=== PATIENT | male | born 1980 | race Caucasian/White ===

== ENCOUNTER 2019-03-28 11:02 | Emergency (ER) | payer OTHER ==
[~2019-03-28] VITALS: Ht 190.5 cm; Wt 122.5 kg
[2019-03-28 11:10] VITALS: BP 141/75
--- NOTE | 2019-03-28 11:46 | NUR ---
38 Y/O M C/O SOB X 2 DAYS. PT STATES HE HAS A HX OF ASTHMA, USES AN INHALER, DOES NOT HAVE ONE AT THIS TIME. PT LUNG SOUNDS CLEAR, OXYGEN LEVEL 98% R/A. PT PUT IN GOWN, ON MONITOR. RESTING COMFORTABLY, SIDE RAIL X1 IN PLACE NKA
[2019-03-28] MEDS ORDERED: DEXAMETHASONE 10 MG/ML VIAL IM ONE (13:15)
[2019-03-28] MEDS ORDERED: ALBUTEROL SULFATE/IPRATROPIU 3 ML SOL IH ONE (13:15)
--- NOTE | 2019-03-28 13:15 | NUR ---
CARMEN ANDERS AT BEDSIDE EXAMINING PATIENT.
--- NOTE | 2019-03-28 13:24 | NUR ---
RT AT BEDSIDE PERFORMING ORDERED BREATHING TX.
[2019-03-28 13:36] VITALS: BP 141/75
--- NOTE | 2019-03-28 13:37 | NUR ---
Patient discharged with v/s stable. Written and verbal after care instructions given and explained. Patient alert, oriented and verbalized understanding of instructions. Ambulatory with steady gait. All questions addressed prior to discharge. ID band removed. Patient advised to follow up with PMD. Rx of ALBUTERAL, QVAR, MEDROL given. Patient educated on indication of medication including possible reaction and side effects. Opportunity to ask questions provided and answered.
== END 2019-03-28 13:37 | disposition home or self-care (01) ==
LOC: MED 11:02
DX: J45.901 Unspecified asthma with (acute) exacerbation (principal); Z76.0 Encounter for issue of repeat prescription
CPT/HCPCS: 94640; 96372; 99283; J1100; J7620

== ENCOUNTER 2019-03-29 10:34 | Emergency (ER) | payer OTHER ==
[~2019-03-29] VITALS: Ht 190.5 cm; Wt 122.5 kg
[2019-03-29 10:41] VITALS: BP 133/89
--- NOTE | 2019-03-29 11:20 | NUR ---
Patient ambulated to bed 1. RN evaluating patient at bedside.
--- NOTE | 2019-03-29 11:46 | NUR ---
38YO M C/O CONTINUOUS HICCUPS X 3 HOURS WHICH IS NOT ALLEVIATED BY DRINKING OF WATER. PT DECRIBES DISCOMFORT "HAVING ACID UP MY CHEST." DENIES VOMITING, ABDOMINAL PAIN AND . LUNGS CLEAR BL; HR EVEN AND REGULAR; PATIENT STATES PAIN OF 0/10 AT THIS TIME; PT WITH NO ACTIVE HICCUPS AT THIS TIME. VSS; PATIENT POSITIONED FOR COMFORT; HOB ELEVATED; BEDRAILS UP X2; BED DOWN. ER MD MADE AWARE OF PT STATUS. PMH: ASTHMA NKA
[2019-03-29] MEDS ORDERED: PANTOPRAZOLE 40 MG TABEC PO ONE (13:45)
[2019-03-29 14:11] VITALS: BP 133/89
--- NOTE | 2019-03-29 14:12 | NUR ---
Patient discharged with v/s stable. Written and verbal after care instructions given and explained. Patient alert, oriented and verbalized understanding of instructions. Ambulatory with steady gait. All questions addressed prior to discharge. ID band removed. Patient advised to follow up with PMD. Rx of OMEPRAZOLE given. Patient educated on indication of medication including possible reaction and side effects. Opportunity to ask questions provided and answered.
== END 2019-03-29 14:10 | disposition home or self-care (01) ==
LOC: MED 10:34
DX: R06.6 Hiccough (principal); K21.9 Gastro-esophageal reflux disease without esophagitis; J45.909 Unspecified asthma, uncomplicated
CPT/HCPCS: 99283

== ENCOUNTER 2019-04-12 12:15 | Emergency (ER) | payer OTHER ==
--- NOTE | 2019-04-12 13:05 | NUR ---
LEFT WITHOUT BEING TRIAGED.
== END 2019-04-12 13:05 | disposition left against medical advice (07) ==
LOC: MED 12:15
DX: R06.02 Shortness of breath (principal); Z53.21 Procedure and treatment not carried out due to patient leaving prior to being seen by health care provider

== ENCOUNTER 2019-04-12 15:52 | Emergency (ER) | payer OTHER ==
[~2019-04-12] VITALS: Ht 190.5 cm; Wt 122.5 kg
[2019-04-12 16:47] VITALS: BP 139/67
--- NOTE | 2019-04-12 17:05 | NUR ---
38 Y/O MALE C/O SOB STARTING 3 DAYS AGO, UNPROVOKED. PT HAS PMH: ASTHMA. RESP EVEN AND UNLABORED. WHEEZES HEARD IN BILAT LOBES DURING INSPIRATION/EXHALATION. DENIES ANY CHEST PAIN. DENIES ANY RECENT ILLNESS. AAOX4. CAP REFILL <3. BOWEL SOUNDS NORMOACTIVE IN ALL QUADRANTS. VSS. NKA
[2019-04-12] MEDS ORDERED: predniSONE 20 MG TAB PO ONE (18:25)
[2019-04-12] MEDS ORDERED: ALBUTEROL SULFATE/IPRATROPIU 3 ML SOL IH ONE (18:25)
--- NOTE | 2019-04-12 18:57 | NUR ---
RESP EVEN AND UNLABORED. PT REPORTS DECREASED SOB.
[2019-04-12 19:26] VITALS: BP 123/69
--- NOTE | 2019-04-12 19:26 | NUR ---
Patient discharged with v/s stable. Written and verbal after care instructions given and explained. Patient alert, oriented and verbalized understanding of instructions. Ambulatory with steady gait. All questions addressed prior to discharge. ID band removed. Patient advised to follow up with PMD. Rx of ALBUTEROL, PREDNISONE, QVAR given. Patient educated on indication of medication including possible reaction and side effects. Opportunity to ask questions provided and answered.
== END 2019-04-12 19:26 | disposition home or self-care (01) ==
LOC: MED 15:52
DX: J20.9 Acute bronchitis, unspecified (principal); J45.909 Unspecified asthma, uncomplicated
CPT/HCPCS: 71045; 94640; 99283; J7512; J7620; Q0092

== ENCOUNTER 2020-06-29 11:12 | Emergency (ER) | payer OTHER ==
[~2020-06-29] VITALS: Ht 190.5 cm; Wt 104.3 kg
[2020-06-29 11:12] VITALS: BP 134/74
--- NOTE | 2020-06-29 11:15 | NUR ---
BIBA TO BED 9
--- NOTE | 2020-06-29 11:16 | NUR ---
39 Y/O MALE BIBA C/O AMS. PT WAS FOUND BY PD ON A WALL, WHEN PD CAME INTO CONTACT WITH HIM PT BEGAN PACING AND RAMBLING TO HIMSELF, NOT MAKING SENSE. PER EMS PT IS AOX3, CONFUSED TO THE DATE. ON ARRIVAL, [facility] 14, A/O X3, CONFUSED TO SITUATION. PT STATES HE IS HERE TO "CLEAR THE AIR" AND THAT "THE BIRDS CALLED 911". PT DENIES DRUG USE BUT ADMITS TO SMOKING CIGARETTES AND WEED IN THE PAST. PT DENIES BEING HOMELESS AND STATES HE LIVES WITH HIS BROTHER. PT STATES HE FELL AND IS C/O BILATERAL KNEE PAIN 12/03 THAT IS NONRADIATING. PT DENIES N/V/SOB/CP/FEVER. PT LAYING IN BED WITH EVEN AND UNLABORED RESPIRATIONS. BED IN LOWEST POSITION, BRAKES LOCKED, X2 SIDERAILS UP FOR SAFETY. PT ON SUPERVISOR PUBLICATIONS HX ASTHMA AND SLEEP APNEA NKA
--- NOTE | 2020-06-29 12:00 | NUR ---
DR ZAPATA AT BEDSIDE EVALUATING PT
--- NOTE | 2020-06-29 12:21 | NUR ---
recycling technician at pt bedside.
[2020-06-29 12:36] LABS: BASOPHILS # (AUTO) 0.1 K/uL (0.00-0.22); BASOPHILS % (AUTO) 1.1 % (0.0-2.0); EOSINOPHILS # (AUTO) 0.2 K/uL (0-0.4); HEMATOCRIT 34.6 % (36-52); HEMOGLOBIN 11.5 g/dL (12.0-18.0); LYMPHOCYTES # (AUTO) 1.9 K/uL (2.0-11.5); LYMPHOCYTES % (AUTO) 41.6 % (20.5-51.1); MEAN CORPUSCULAR HEMOGLOBIN 32 pg (27-31); MEAN CORPUSCULAR HGB CONC 33 g/dL (33-37); MONOCYTES # (AUTO) 0.6 K/uL (0.8-1.0); MONOCYTES % (AUTO) 13.9 % (1.7-9.3); NEUTROPHILS # (AUTO) 1.7 K/uL (1.8-7.7); NEUTROPHILS % (AUTO) 38.4 % (42.2-75.2); PLATELET COUNT (AUTO) 199 K/uL (140-450); RED BLOOD CELL COUNT(AUTO) 3.64 MIL/uL (4.20-6.10); RED CELL DISTRIBUTION WIDTH 12.8 % (11.6-13.7); WHITE BLOOD COUNT (AUTO) 4.5 K/uL (4.8-10.8)
--- NOTE | 2020-06-29 12:40 | NUR ---
hydroelectric production technician at pt bedside.
--- NOTE | 2020-06-29 13:01 | NUR ---
RT at bedside for ABG exam.
[2020-06-29 13:13] LABS: ALBUMIN 3.3 g/dL (3.4-5.0); ANION GAP 9.1 (8-16); CARBON DIOXIDE 27.7 mmol/L (21-32); CREATININE 0.9 mg/dL (0.6-1.3); POTASSIUM 3.8 mmol/L (3.5-5.1); TOTAL BILIRUBIN 0.3 mg/dL (0.0-1.0)
[2020-06-29 13:14] LABS: ACETAMINOPHEN < 0.5 ug/ml (10-30); SALICYLATE < 2.8 mg/dL (2.8-20.0)
--- NOTE | 2020-06-29 13:15 | NUR ---
PT REFUSED ABG. PT SCEAMING AT STAFF SAYING "I'M GOING TO DO SOMETHING TO THIS PLACE!" PT YELLING THAT HE WANTS CHICKEN AND THAT HIS IS HUNGRY. PT STATES HE WANTS TO LEAVE AND GET SOMETHING TO EAT. PT OFFERED A MEAL HERE PT REFUSED AND VERBALLY AGGRESSIVE YELLING AT MYSELF. SECURITY CALLED TO BEDSIDE. PT WILL BE ESCORTED FROM FACILITY. DR. ZAPATA MADE AWARE.
[2020-06-29 13:17] LABS: APPEARANCE,URINE CLEAR (CLEAR); BILIRUBIN,URINE NEGATIVE (NEGATIVE); BLOOD, URINE NEGATIVE (NEGATIVE); COLOR,URINE YELLOW (YELLOW); LEUKOCYTE ESTERASE ,URINE NEGATIVE (NEGATIVE); NITRITE, URINE NEGATIVE (NEGATIVE); UGLUCOSE NEGATIVE (NEGATIVE)
--- NOTE | 2020-06-29 13:20 | NUR ---
PT ELOPED FROM FACILITY ACCOMPANIED BY SECURITY. DR. ZAPATA NOTIFIED.
[2020-06-29 13:35] LABS: BARBITURATE, URINE NEGATIVE ng/ml (NEG <=200); BENZODIAZEPINE, URINE NEGATIVE ng/mL (NEG <=200); CANNABINOID, URINE NEGATIVE ng/mL (NEG <=50); COCAINE, URINE NEGATIVE ng/mL (NEG <=300); OPIATE, URINE NEGATIVE ng/mL (NEG <=2000); PHENCYCLIDINE SCREEN,URINE NEGATIVE ng/mL (NEG <=25)
== END 2020-06-29 13:20 | disposition left against medical advice (07) ==
LOC: MED 11:12
DX: F29 Unspecified psychosis not due to a substance or known physiological condition (principal); D64.9 Anemia, unspecified; J45.909 Unspecified asthma, uncomplicated; D72.819 Decreased white blood cell count, unspecified
CPT/HCPCS: 36415; 71045; 80053; 80305; 81003; 83880; 84484; 85025; 93005; 99285; G0480; G0482

== ENCOUNTER 2022-03-24 23:39 | Emergency (ER) | payer OTHER ==
[~2022-03-24] VITALS: Ht 190.5 cm; Wt 136.1 kg
[2022-03-24 23:46] VITALS: BP 147/90
--- NOTE | 2022-03-24 23:49 | NUR ---
SEEN AND EXAMINED BY ZITA
--- NOTE | 2022-03-24 23:59 | NUR ---
pt ambulated to bed #4
[2022-03-25] MEDS ORDERED: predniSONE 20 MG TAB PO ONE
[2022-03-25] MEDS ORDERED: ALBUTEROL SULFATE/IPRATROPIU 3 ML SOL IH ONE
[2022-03-25] MEDS ORDERED: ALBU0.0912 INH (00:59)
[2022-03-25] MEDS ORDERED: PRED20TA5 PO (00:59)
[2022-03-25] MEDS ORDERED: AZIT250T11 PO (00:59)
[2022-03-25] MEDS ORDERED: predniSONE 20 MG TAB ONE (01:03)
[2022-03-25 01:16] VITALS: BP 147/90
--- NOTE | 2022-03-25 01:17 | NUR ---
Patient discharged with v/s stable. Written and verbal after care instructions given and explained. Patient alert, oriented and verbalized understanding of instructions. Ambulatory with steady gait. All questions addressed prior to discharge. ID band removed. Patient advised to follow up with PMD. Rx of ALBUTEROL, AZITHROMYCIN, PREDNISONE given. Patient educated on indication of medication including possible reaction and side effects. Opportunity to ask questions provided and answered.
== END 2022-03-25 01:16 | disposition home or self-care (01) ==
LOC: MED 23:39
DX: J45.901 Unspecified asthma with (acute) exacerbation (principal); Z79.899 Other long term (current) drug therapy
CPT/HCPCS: 94640; 99283; J7512

== ENCOUNTER 2022-04-05 04:54 | Emergency (ER) | payer OTHER ==
[~2022-04-05] VITALS: Ht 190.5 cm; Wt 133.8 kg
[~2022-04-05 04:54] MED LIST: ALBU0.0912 INH; AZIT250T11 PO; PRED20TA5 PO
[2022-04-05 04:57] VITALS: BP 148/101
--- NOTE | 2022-04-05 05:00 | NUR ---
to bed ambulatory
--- NOTE | 2022-04-05 05:00 | NUR ---
RECEIVED IN BED 5 WITH C/O SOB X 3 DAYS. PT WITH H/O ASTHMA. RESPIRATIONS SLIGHTLY LABORED.
--- NOTE | 2022-04-05 05:23 | NUR ---
Dr. Craig examining patient.
[2022-04-05] MEDS ORDERED: DEXAMETHASONE 10 MG/ML VIAL IM ONE (05:25)
[2022-04-05] MEDS ORDERED: IPRATROPIUM 0.02% 0.5 MG/2.5 ML NEBU INH ONE (05:25)
[2022-04-05] MEDS ORDERED: ALBUTEROL 0.083% 2.5 MG/3 ML NEBU INH ONE (05:25)
--- NOTE | 2022-04-05 05:35 | NUR ---
Respiratory Therapist at bedside for respiratory intervention.
--- NOTE | 2022-04-05 06:57 | NUR ---
Dr. ANDREW examining patient.
[2022-04-05 07:09] VITALS: BP 145/83
--- NOTE | 2022-04-05 07:09 | NUR ---
Patient discharged with v/s stable. Written and verbal after care instructions given and explained. Patient verbalized understanding. Ambulatory with steady gait. All questions addressed prior to discharge. Advised to follow up with PMD.
== END 2022-04-05 07:09 | disposition home or self-care (01) ==
LOC: MED 04:54
DX: J45.901 Unspecified asthma with (acute) exacerbation (principal); I10 Essential (primary) hypertension; Z79.899 Other long term (current) drug therapy
CPT/HCPCS: 94640; 96372; 99283; J1100; J7613; J7644

== ENCOUNTER 2022-04-08 04:57 | Emergency (ER) | payer OTHER ==
[~2022-04-08] VITALS: Ht 190.5 cm; Wt 131.5 kg
[2022-04-08 05:20] VITALS: BP 129/92
--- NOTE | 2022-04-08 05:23 | NUR ---
TO BED AMBULATORY
[2022-04-08] MEDS ORDERED: ALBUTEROL SULFATE/IPRATROPIU 3 ML SOL IH ONE (05:30)
[2022-04-08] MEDS ORDERED: methylPREDNISolone SS 125 MG/2 ML VIAL IM ONE (05:30)
--- NOTE | 2022-04-08 05:34 | NUR ---
pt to bed #12
[2022-04-08] MEDS ORDERED: BECL10.62 INH (06:14)
--- NOTE | 2022-04-08 06:25 | NUR ---
Patient discharged with v/s stable. Written and verbal after care instructions given and explained. Patient alert, oriented and verbalized understanding of instructions. Ambulatory with steady gait. All questions addressed prior to discharge. ID band removed. Patient advised to follow up with PMD. Rx of BECLOMETHASONE DIPROPIONATE given. Opportunity to ask questions provided and answered.
== END 2022-04-08 06:25 | disposition home or self-care (01) ==
LOC: MED 04:57
DX: J45.901 Unspecified asthma with (acute) exacerbation (principal)
CPT/HCPCS: 94640; 94760; 96372; 99283; J2930